=== PATIENT | male | born 1960 | race Caucasian/White ===

== ENCOUNTER → 2018-02-13 | Outpatient (CLI) | payer OTHER ==
[~2018-02-13] MED LIST: ASPI81CH PO; DIAZ5 PO; Humalog100 UNIT/1 SC; Lantus100 UNIT/1 SC; METO25 PO; RISP.25 PO; SERT50 PO
[2018-02-14 13:39] LABS: Stool Occult Bld Immuno 1 Negative (NEGATIVE); Stool Occult Bld Immuno 2 Negative (NEGATIVE)
== END | disposition home or self-care (01) ==
LOC: LAB SHORT 10:34 → LAB 10:34
PROVIDERS: Internal Medicine
DX: Z12.5 Encounter for screening for malignant neoplasm of prostate (principal); Z12.11 Encounter for screening for malignant neoplasm of colon; E03.9 Hypothyroidism, unspecified; E10.9 Type 1 diabetes mellitus without complications; E78.5 Hyperlipidemia, unspecified; Z79.899 Other long term (current) drug therapy
CPT/HCPCS: G0328

== ENCOUNTER → 2019-04-13 | Outpatient (CLI) | payer OTHER ==
[2019-04-13 13:56] LABS: Stool Occult Bld Immuno 1 Negative (NEGATIVE)
[2019-04-14 15:02] LABS: Stool Occult Bld Immuno 2 Negative (NEGATIVE)
== END ==
LOC: LAB 08:56 → LAB SHORT 08:56
PROVIDERS: Internal Medicine
DX: Z12.5 Encounter for screening for malignant neoplasm of prostate (principal); Z12.11 Encounter for screening for malignant neoplasm of colon; E78.5 Hyperlipidemia, unspecified; E10.9 Type 1 diabetes mellitus without complications; E03.9 Hypothyroidism, unspecified
CPT/HCPCS: 82274

== ENCOUNTER 2019-09-12 06:11 | Day surgery (SDC) | payer OTHER ==
[~2019-09-12] VITALS: Ht 177.8 cm; Wt 85.6 kg
[~2019-09-12 06:11] MED LIST changes: +ESCI10 PO; +Flonase 0.05% N16 GM; +LEVO-T75 MCG PO
--- NOTE | 2019-09-12 07:04 | NUR ---
09/12/19 0704 Umm Zuñiga PT TEACHING DONE, WARM BLANKET PROVIDED AND CALL LIGHT IN REACH.
--- NOTE | 2019-09-12 08:54 | NUR ---
09/12/19 0854 Juanjo Nelson PT RESTING ON CHAIR. DENIES ANY PAIN. PT TOLERATING JUICE. WILL CONTINUE TO MONITOR. VS WNL. PT CONVERSE TO RN VERY EASILY.
== END 2019-09-12 09:21 | disposition home or self-care (01) ==
LOC: ORSCSDS 06:11
PROVIDERS: Otolaryngology
PROC: 0CBV8ZX Excision of Left Vocal Cord, Via Natural or Artificial Opening Endoscopic, Diagnostic (ICD-10-PCS; principal; 2019-09-12 07:30)
DX: D38.0 Neoplasm of uncertain behavior of larynx (principal); J38.7 Other diseases of larynx; I25.10 Atherosclerotic heart disease of native coronary artery without angina pectoris; K21.9 Gastro-esophageal reflux disease without esophagitis; E10.9 Type 1 diabetes mellitus without complications; Z79.4 Long term (current) use of insulin; E03.9 Hypothyroidism, unspecified; Z79.899 Other long term (current) drug therapy
CPT/HCPCS: 82947; 88305; J0330; J1100; J2250; J2704; J3010; J7120